=== PATIENT | male | born 1980 | race Caucasian/White ===

== ENCOUNTER 2017-06-19 22:42 | Emergency (ER) | payer SELFPAY ==
[~2017-06-19] VITALS: Ht 170.2 cm; Wt 74.8 kg
[2017-06-20] MEDS ORDERED: IBUPROFEN600 MG PO (00:55)
--- NOTE | 2017-06-20 21:54 | EKG ---
[facility] [address] [facility] [place], [place] [address] Signed Normal sinus rhythm with sinus arrhythmia Normal ECG No previous ECGs available Confirmed by JUN HORNE MD ([id number] on 06/20/2017 9:54:53 PM Electronically Signed By: JUN HORNE MD 06/20/17 2154 PATIENT NAME: TORIN GALINDO Electrocardiogram DATE OF : 76 PHYSICIAN: JUN HORNE MD REPORT #: [id number] REPORT IS CONFIDENTIAL AND NOT TO BE RELEASED WITHOUT AUTHORIZATION
== END 2017-06-20 01:21 | disposition home or self-care (01) ==
LOC: ED 22:42
DX: R07.89 Other chest pain (principal); I10 Essential (primary) hypertension
CPT/HCPCS: 71020; 80053; 84484; 85025; 85379; 93005; 93010; 96374; 96375; 99284; J1885; J3010